=== PATIENT | female | born 1975 | race American Indian/Alaskan Native ===

== ENCOUNTER 2021-08-12 22:25 | Emergency (ER) | payer MEDICAID ==
--- NOTE | 2021-08-14 12:08 | Electrocardiograph Report ---
[facility] Test Date: 2021-08-12 Test Time: 22:42:29 Pat Name: PARISH ABBOTT Department: Room: Gender: F Account Clerk: [id number] : 1975 Requested By: STANTON RANDLE Order Number: [id number] Reading MD: Tato Hammond Measurements Intervals [place] Rate: 88 P: 56 [place]: 161 QRS: 8 QRSD: 79 T: 39 QT: 341 QTc: 414 Interpretive Statements Sinus rhythm No previous ECG available for comparison Electronically Signed On 08-14-2021 12:07:09 EDT by Tato Hammond
== END 2021-08-12 23:00 | disposition left against medical advice (07) ==
LOC: ED 22:25
DX: R07.9 Chest pain, unspecified (principal); R06.02 Shortness of breath; Z53.21 Procedure and treatment not carried out due to patient leaving prior to being seen by health care provider
CPT/HCPCS: 93005